=== PATIENT | male | born 1940 | race Caucasian/White ===

== ENCOUNTER 2016-09-26 06:19 | Day surgery (SDC) | payer MEDICARE ==
[~2016-09-26] VITALS: Ht 172.7 cm; Wt 107.7 kg
[~2016-09-26 06:19] MED LIST: ACET325 PO; ASPI81TA82 PO; CEPH500 PO; DONE5TAB14 PO; GLIP5 PO; LOTE20TA PO; LOVA20TA PO; METO25 PO; POLY119S PO; TAMS0.4C67 PO; TRAZ50TA4 PO; VESI5TAB PO; XANA0.5T PO
[2016-09-26 06:56] VITALS: BP 130/65; PULSE 48; RESP 20; TEMP 97.7; O2SAT 95
[2016-09-26] MEDS ORDERED: LEVOFLOXACIN 500 MG PREMIX 100 ML - nephrostomy tube insertion or exchange IV SCH (07:00)
[2016-09-26] MEDS ORDERED: SODIUM CHLORIDE 0.9% 1000 ML IV SCH (07:00)
[2016-09-26 07:17] LABS: AUTOMATED NEUTROPHIL # 5.1 TH/MM3 (1.8-7.7); BASOPHIL # 0.1 TH/MM3 (0-0.2); BASOPHIL % 1.1 % (0.0-2.0); EOSINOPHIL # 0.3 TH/MM3 (0-0.4); EOSINOPHIL % 4.4 % (0.0-4.0); HEMO FLAGS DIFF FINAL; LYMPHOCYTE # 1.1 TH/MM3 (1.0-4.8); MEAN CELL VOLUME 83.9 FL (80.0-100.0); MEAN CORPUSCULAR HEMOGLOBIN 27.2 PG (27.0-34.0); MEAN CORPUSCULAR HGB CONC 32.4 % (32.0-36.0); MONO % 11.6 % (0.0-8.0); NEUT % 67.9 % (16.0-70.0); PLATELET COUNT 329 TH/MM3 (150-450); RED CELL DISTRIBUTION WIDTH 16.1 % (11.6-17.2); WHITE BLOOD COUNT 7.5 TH/MM3 (4.0-11.0)
[2016-09-26 07:30] LABS: APTT (PATIENT) 27.2 SEC (24.3-30.1); PROTHROMBIN TIME - PATIENT 10.6 SEC (9.8-11.6)
[2016-09-26] MEDS ORDERED: METO25TA3 PO (07:35)
[2016-09-26] MEDS ORDERED: FURO1TAB60 PO (07:35)
[2016-09-26] MEDS ORDERED: ASPI1TAB69 PO (07:35)
[2016-09-26] MEDS ORDERED: BENA20TA PO (07:35)
[2016-09-26] MEDS ORDERED: MIRA3350 PO (07:35)
[2016-09-26] MEDS ORDERED: trazadone PO (07:35)
[2016-09-26] MEDS ORDERED: GLIP5TAB8 PO (07:35)
[2016-09-26] MEDS ORDERED: LOVA10TA PO (07:35)
[2016-09-26] MEDS ORDERED: DONE1TAB90 PO (07:35)
[2016-09-26] MEDS ORDERED: TYLE325T PO (07:35)
[2016-09-26] MEDS ORDERED: fentaNYL CITRATE 250 MCG/5 ML AMP ONE (08:57)
[2016-09-26] MEDS ORDERED: MIDAZOLAM HCL 5 MG/5 ML VIAL ONE (08:57)
[2016-09-26] MEDS ORDERED: IOHEXOL 350 MG/ML 50 ML BTL (for RAD DIAG) ONE (09:30)
[2016-09-26 09:45] VITALS: BP 129/73; PULSE 77; RESP 16; TEMP 98.4; O2SAT 93
--- NOTE | 2016-09-26 09:55 | PD.RAD ---
Post Procedure Progress Note Pre Procedure Diagnosis: (1) Urinary retention Post Procedure Diagnosis: (1) Urinary retention Procedure Date: Sep 26, 2016 Supervising Radiologist: Ventura Hankins Anesthesia: Conscious Sedation Plan of Activity Patient to Unit: ROPU Patient Condition: Good See PACS Report for procedural detail/treatment Drainage Procedure Procedure 1 Imaging Guidance: Fluoroscopy Procedure Type: Suprapubic Tube Procedure: Exchange Drainage: [place] drainage Fluid Description: Ventura Cates MD Sep 26, 2016 09:55
[2016-09-26 10:03] VITALS: BP 131/71; PULSE 68; RESP 16; O2SAT 97
[2016-09-26 10:15] VITALS: BP 145/95; PULSE 77; RESP 16; O2SAT 97
--- NOTE | 2016-09-26 10:22 | RADRPT ---
EXAM DATE/TIME: 09/26/2016 08:30 [place] COMPARISON: SUPRAPUBIC TUBE PLACEMENT, March 26, 2016, 8:58. INDICATIONS : Patient with prostate cancer in need of suprapubic catheter exchange. MEDICAL HISTORY : Prostate cancer GERD PE HTN SURGICAL HISTORY : IVC filter Suprapubic tube placement ENCOUNTER: Subsequent ACUITY: 1 day PAIN SCORE: 0/10 FLUORO TIME: 8.1 minutes SEDATION TIME: 30 minutes CONTRAST: 30 cc Omnipaque 350 (iohexol) Francis catheter MEDICATION(S): 1.) 1 mg midazolam (Versed) IV 2.) 100 mcg fentanyl (Sublimaze) IV DEVICE(S): 1.) Francis catheter 16 FR PROCEDURE : 1. Ultrasound localization of the bladder. 2. Suprapubic catheter placement. 3. Conscious sedation with continuous EKG and oximetry monitoring. The risks, benefits and alternatives to the procedure were explained and verbal and written consent w as obtained. The site was prepped in sterile fashion. Full sterile technique was used, including ca p, mask, sterile gloves and gown and a large sterile sheet. Hand hygiene and 2% chlorhexidine and/or betadine/alcohol prep was utilized per protocol for cutaneous antisepsis. The skin and subcutaneous tissues were infiltrated with local anesthetic solution. Utilizing ultrasound and fluoroscopic guidance the urinary bladder was localized. Just above the pub ic symphysis in the midline a dermatotomy was made and serial dilatation was performed to accept a 14 [place] Francis catheter. The balloon was inflated and positive contrast was injected to document intr aluminal position. Conscious sedation was performed with the prescribed dosages and duration as above. The patient tole rated the procedure well and there were no complications. EKG and oximetry remained stable throughou t the procedure. The patient was sent to post anesthesia recovery in stable condition. CONCLUSION: Uncomplicated suprapubic catheter placement. Ventura Hankins MD on September 26, 2016 at 10:18 Board Certified Radiologist. This report was verified electronically.
[2016-09-26 11:43] VITALS: BP 146/75; PULSE 75; RESP 16; O2SAT 96
== END 2016-09-26 11:49 | disposition home or self-care (01) ==
LOC: HROP 06:19 → HRIP 06:20 → HROP 11:49
PROVIDERS: ATTEND Urology
DX: R33.9 Retention of urine, unspecified (principal)
CPT/HCPCS: 51705; 85025; 85610; 85730; 99152; 99153; C1769; C1887; C1894; J1956; J2250; J3010; J7030; Q9967